=== PATIENT | male | born 1955 | race Caucasian/White ===

== ENCOUNTER → 2019-08-18 | Outpatient (REF) | payer MEDICARE, OTHER ==
[~2019-08-18] MED LIST: LASI20TA OR; VICO5TAB OR
== END ==
LOC: M LAB REF 17:33
PROVIDERS: ATTEND Internal Medicine
DX: R74.8 Abnormal levels of other serum enzymes (principal)

== ENCOUNTER → 2020-04-11 | Outpatient (CLI) | payer MEDICARE ==
--- NOTE | 2020-04-11 14:30 | REP ---
REASON: Back pain, status post slip and fall. COMPARISON: None. 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 The pedicles are intact bilaterally. There is moderate to severe degenerative disc space narrowing and particularly posteriorly. There is anterior lipping at every level. There is a retrolisthesis of L1 on L2 and a retrolisthesis of L2 on L3. There is a grade 1 spondylolisthesis of L4 on L5. Hypertrophic degenerative facet joint changes are seen at every level bilaterally particularly L4-5 and L5-S1. Degenerative changes are seen involving the sacroiliac joints. There is no evidence of an acute fracture. IMPRESSION: Chronic changes as described above. Electronically Signed by Negrito Hart DO 04/11/2020 05:12 P
== END ==
LOC: M WUC 12:31
PROVIDERS: ATTEND Physician Assistant
DX: S39.012A Strain of muscle, fascia and tendon of lower back, initial encounter (principal); X58.XXXA Exposure to other specified factors, initial encounter; Y92.89 Other specified places as the place of occurrence of the external cause; Y93.9 Activity, unspecified; Y99.9 Unspecified external cause status

== ENCOUNTER → 2020-05-09 | Outpatient (REF) | payer MEDICARE ==
[2020-05-10 12:54] LABS: PERCENT SATURATION 36.9 % (19.7-50.0)
== END ==
LOC: M LAB REF 12:05
PROVIDERS: ATTEND Internal Medicine
DX: R79.89 Other specified abnormal findings of blood chemistry (principal)

== ENCOUNTER → 2020-06-09 | Outpatient (REF) | payer MEDICARE ==
[2020-07-28 06:58] LABS: HEPATITIS A ANTIBODY IGM NEGATIVE (NEGATIVE)
[2020-07-28 06:59] LABS: HEPATITIS B SURFACE ANTIGEN NEGATIVE (NEGATIVE)
== END ==
LOC: M LAB REF 12:05
PROVIDERS: ATTEND Internal Medicine
DX: R94.5 Abnormal results of liver function studies (principal)

== ENCOUNTER → 2020-07-05 | Outpatient (REF) | payer MEDICARE | LOC: M LAB REF 08:47 | PROVIDERS: ATTEND Internal Medicine | DX: R94.5 Abnormal results of liver function studies (principal); R16.0 Hepatomegaly, not elsewhere classified ==

== ENCOUNTER → 2021-05-22 | Outpatient (CLI) | payer MEDICARE | LOC: M RAD 07:03 | PROVIDERS: ATTEND Nurse Practitioner Family | DX: R94.5 Abnormal results of liver function studies (principal); K76.0 Fatty (change of) liver, not elsewhere classified; Z86.010 Personal history of colon polyps; R19.7 Diarrhea, unspecified ==

== ENCOUNTER → 2022-01-16 | Outpatient (REF) | payer MEDICARE | LOC: M LAB REF 16:13 | PROVIDERS: ATTEND Internal Medicine | DX: Z12.5 Encounter for screening for malignant neoplasm of prostate (principal) ==

== ENCOUNTER 2024-01-09 12:13 | Emergency (ER) | payer MEDICARE ==
[~2024-01-09] VITALS: Ht 180.3 cm; Wt 94.4 kg
[~2024-01-09 12:13] MED LIST changes: -ATOR40TA75; -AZIT500T5 PO; -JARD1TAB3; -LISI20TA33; -METF500T13; -SEMA1PEN2
[2024-01-09] MEDS ORDERED: ATOR40TA75 (12:22)
[2024-01-09] MEDS ORDERED: JARD1TAB3 (12:22)
[2024-01-09] MEDS ORDERED: METF500T13 (12:22)
[2024-01-09] MEDS ORDERED: SEMA1PEN2 (12:22)
[2024-01-09] MEDS ORDERED: LISI20TA33 (12:22)
[2024-01-09 13:25] LABS: RSV AMPLIFICATION NEGATIVE (NEGATIVE)
[2024-01-09 13:31] LABS: BASO % 0.6 % (0.0-1.0); EOS # 0.3 10^3/uL (0.0-0.5); EOS % 5.2 % (0.0-3.0); HEMATOCRIT 40.2 % (42.0-52.0); HEMOGLOBIN 13.4 g/dl (13.5-17.5); LYMPH # 1.3 10^3/uL (1.5-5.0); LYMPH % 27.3 % (24.0-44.0); MEAN CORPUSCULAR HEMOGLOBIN 31.5 pg (27.0-33.0); MEAN CORPUSCULAR HGB CONC 33.3 g/dl (32.0-36.5); MEAN CORPUSCULAR VOLUME 94.6 fl (80.0-96.0); MONO # 1.4 10^3/uL (0.0-0.8); MONO % 29.6 % (2.0-8.0); NEUTROPHILS # 1.7 10^3/uL (1.5-8.5); NEUTROPHILS % 35.9 % (36.0-66.0); PLATELET COUNT, AUTOMATED 197 10^3/uL (150-450); RED BLOOD COUNT 4.25 10^6/uL (4.30-6.10); WHITE BLOOD COUNT 4.8 10^3/uL (4.0-10.0)
[2024-01-09 13:56] LABS: LIPASE 40 U/L (12-53)
[2024-01-09 13:58] LABS: ALKALINE PHOSPHATASE 92 U/L (46-116); ALT/SGPT 12 U/L (7.0-40); AST/SGOT < 8 U/L (<34); BILIRUBIN,DIRECT 0.3 MG/DL (<0.4); BILIRUBIN,TOTAL 0.8 MG/DL (0.3-1.2); BLOOD UREA NITROGEN 18 MG/DL (9-23); CARBON DIOXIDE LEVEL 26 MMOL/L (20-31); CHLORIDE LEVEL 106 MMOL/L (98-107); CREATININE FOR GFR 0.88 MG/DL (0.70-1.30); GLOMERULAR FILTRATION RATE > 60.0 (>42); GLUCOSE, FASTING 142 MG/DL (74-106); POTASSIUM SERUM 3.8 MMOL/L (3.5-5.1); SODIUM LEVEL 139 MMOL/L (136-145)
[2024-01-09] MEDS ORDERED: ISOVUE-370 76% 100ML VIAL As Ordered ONE (15:39)
[2024-01-09] MEDS: READI-CAT 2 PO SCH (16:17)
[2024-01-09] MEDS: diphenhydrAMINE 50MG/ML VIAL IV ONE (17:45)
[2024-01-09] MEDS: methylPREDNISolone 125MG 2ML VIAL IV ONE (17:45)
[2024-01-09 19:15] VITALS: BP 115/58; TEMP 99.4; O2SAT 97
[2024-01-09] MEDS ORDERED: AZIT500T5 PO (19:54)
[2024-01-09] MEDS: AZITHROMYCIN 250MG TABLET PO ONE (20:01)
== END 2024-01-09 20:05 | disposition home or self-care (01) ==
LOC: M ED 12:13
DX: A03.0 Shigellosis due to Shigella dysenteriae (principal); A04.0 Enteropathogenic Escherichia coli infection; A07.1 Giardiasis [lambliasis]; E11.9 Type 2 diabetes mellitus without complications; Z79.4 Long term (current) use of insulin; Z79.02 Long term (current) use of antithrombotics/antiplatelets; Z79.811 Long term (current) use of aromatase inhibitors; Z79.2 Long term (current) use of antibiotics; Z91.041 Radiographic dye allergy status
CPT/HCPCS: 74177; 80048; 80076; 83690; 85025; 87507; 87631; 96374; 99283; J1200; J2930; Q9967

== ENCOUNTER → 2024-01-09 | Outpatient (CLI) | payer MEDICARE ==
[~2024-01-09] MED LIST changes: +ATOR40TA75; +AZIT500T5 PO; +JARD1TAB3; +LISI20TA33; +METF500T13; +SEMA1PEN2
== END ==
LOC: M WUC 11:33
PROVIDERS: ATTEND Nurse Practitioner Family
DX: R19.7 Diarrhea, unspecified (principal)

== ENCOUNTER → 2024-07-09 | Outpatient (REF) | payer MEDICARE ==
[~2024-07-09] MED LIST changes: +ATOR40TA75; +AZIT500T5 PO; +JARD1TAB3; +LISI20TA33; +METF500T13; +SEMA1PEN2
== END ==
LOC: M LAB REF 11:18
PROVIDERS: ATTEND Internal Medicine
DX: K76.0 Fatty (change of) liver, not elsewhere classified (principal); K75.81 Nonalcoholic steatohepatitis (NASH); K74.00 Hepatic fibrosis, unspecified

== ENCOUNTER → 2025-05-28 | Outpatient (REF) | payer MEDICARE | LOC: M LAB REF 12:26 | PROVIDERS: ATTEND Internal Medicine | DX: K76.0 Fatty (change of) liver, not elsewhere classified (principal) ==